=== PATIENT | male | born 1945 | race Caucasian/White ===

== ENCOUNTER 2017-05-30 11:07 | Emergency (ER) | payer MEDICARE, MEDICAID ==
--- NOTE | 2017-05-30 11:40 | ED.PDOC ---
History of Present Illness - General Chief Complaint: Skin/Abrasion/Tear Stated Complaint: Skin irritation L foot Time Seen by Provider: 05/30/17 11:17 Source: patient - History of Present Illness Initial Comments: Teresa Baires 71 y/o male stated that his left foot had been hurting for the last 2 weeks.He had previous athletes foot in the past stating it recurred Timing/Duration: other - 2 weeks Severity: mild Location: feet Improving Factors: nothing Worsening Factors: movement Associated Symptoms: denies symptoms Allergies/Adverse Reactions: Allergies NO KNOWN ALLERGY Allergy (Verified 05/30/17 11:22) Home Medications: Ambulatory Orders Terbinafine 1% Cream [LamISIL Cream] 30 gm TOP BID #1 tube 05/30/17 Past Medical History (General) - Patient Medical History Hx Stroke: No Hx Congestive Heart Failure: No Hx Diabetes: No Hx MRSA: No Surgical History: appendectomy, tonsillectomy, other - clubfoot surgery - Vaccination History Hx Influenza Vaccination: No Hx Pneumococcal Vaccination: Yes - 2016 - Social History Hx Tobacco Use: Yes - Activities of Daily Living Patient Lives Alone: Yes - homeless Family Medical History - Family History Father Family History: No Known Living Status: Physical Exam - Physical Exam General Appearance: Alert, Comfortable, No apparent distress Eyes, Ears, Nose, Throat Exam: PERRL/EOMI, normal ENT inspection, TMs normal, pharynx normal Neck: non-tender, full range of motion Cardiovascular/Chest: normal peripheral pulses, regular rate, rhythm, no murmur Respiratory: chest non-tender, lungs clear Gastrointestinal/Abdominal: non tender, soft, no organomegaly Extremity: normal range of motion, non-tender, no pedal edema, no calf tenderness Neurologic: alert, normal mood/affect, oriented x 3 Skin Exam: warm/dry, normal color Skin Problem Location: lower extremities - left foot Skin Character: other - moistened area web space left foot with fissusre Lymphatic: no adenopathy Progress - Progress Progress: 05/30/17 11:43 Vital Signs - 8 hr 05/30/17 11:22 Temperature 98.2 F Pulse Rate [ 89 Left Radial] Respiratory 20 Rate Blood Pressure 114/71 [Left Arm] O2 Sat by Pulse 95 Oximetry Departure - Departure Clinical Impression: Athlete's foot on left Time of Disposition: 11:44 Disposition: Discharge to Home or Self Care Condition: Good Departure Forms: ED Discharge - Pt. Copy, Patient Portal Self Enrollment Instructions: DI for Athlete's Foot, Athlete's Foot, Athlete's Foot ( Alternative Therapy) Prescriptions: Terbinafine 1% Cream [LamISIL Cream] 30 gm TOP BID #1 tube Home Medications: Ambulatory Orders Terbinafine 1% Cream [LamISIL Cream] 30 gm TOP BID #1 tube 05/30/17
[2017-05-30 11:43] VITALS: BP 114/71; TEMP 98.2; O2SAT 95
[2017-05-30] MEDS ORDERED: ceFAZolin SODIUM 1 GM VIAL IM ONE (11:43)
[2017-05-30] MEDS ORDERED: TETANUS,DIPHTHERIA,PERTUSSIS 1 EA SYG IM ONE (11:43)
[2017-05-30] MEDS ORDERED: WATER FOR INJ 10 ML VIAL INJ ONE (11:49)
== END 2017-05-30 12:10 | disposition home or self-care (01) ==
LOC: ER 11:07
DX: B35.3 Tinea pedis (principal); Z23 Encounter for immunization; Z87.891 Personal history of nicotine dependence
CPT/HCPCS: 90471; 90715; A4216; J0690